=== PATIENT | male | born 1970 | race Caucasian/White ===

== ENCOUNTER → 2017-07-26 | Outpatient (CLI) | payer OTHER | LOC: BMCIMAGING 09:25 | PROVIDERS: ATTEND Internal Medicine | DX: M19.012 Primary osteoarthritis, left shoulder (principal) ==

== ENCOUNTER → 2017-10-02 | Outpatient (CLI) | payer OTHER | LOC: BMCIMAGING 09:28 | PROVIDERS: ATTEND Internal Medicine | DX: J40 Bronchitis, not specified as acute or chronic (principal) ==

== ENCOUNTER 2018-01-25 16:07 | Emergency (ER) | payer OTHER ==
[2018-01-25] MEDS ORDERED: ASPIRIN 81 MG CHEWABLE TAB PO ONE (16:38)
[2018-01-25] MEDS ORDERED: NS 500 ML IV ONE (16:38)
--- NOTE | 2018-01-25 16:41 | EDPHY ---
H & P Stated Complaint: R face/hand tingling Time Seen by Provider: 01/25/18 16:28 HPI/ROS: CHIEF COMPLAINT: Jaw numbness HISTORY OF PRESENT ILLNESS: Patient is a 47-year-old man who quit smoking 3 months ago and also has ulcerative colitis and GERD who comes to the emergency department complaining of tingling in his jaw and both forearms that began 3 hr ago. It began while he is watching a movie. He states that he can reproduce the tingling is arm if he puts his arms up on the arm railings. He was in this position while watching the movie. He states that he has also had palpitations after meals for the last month. He denies chest pain per se. He denies shortness of breath, diaphoresis, nausea or lightheadedness. No known cardiac disease. He also comments that his blood pressures been higher in the right arm than the left when he checks it at home. He called his primary Dr. Tolentino who recommended he come to the ER. REVIEW OF SYSTEMS: Constitutional: denies: chills, fever, recent illness, recent injury EENTM: denies: blurred vision, double vision, nose congestion Respiratory: denies: cough, shortness of breath Cardiac: denies: chest pain, irregular heart rate, lightheadedness, palpitations Gastrointestinal/Abdominal: denies: abdominal pain, diarrhea, nausea, vomiting, blood streaked stools Genitourinary: denies: dysuria, frequency, hematuria, pain Musculoskeletal: denies: joint pain, muscle pain Skin: denies: lesions, rash, jaundice, bruising Neurological: denies: headache, numbness, paresthesia, tingling, dizziness, weakness Hematologic/Lymphatic: denies: blood clots, easy bleeding, easy bruising Immunologic/allergic: denies: HIV/AIDS, transplant EXAM: GENERAL: Well-appearing, well-nourished and in no acute distress. HEAD: Atraumatic, normocephalic. EYES: Pupils equal round and reactive to light, extraocular movements intact, sclera anicteric, conjunctiva are normal. ENT: TMs normal, nares patent, oropharynx clear without exudates. Moist mucous membranes. NECK: Normal range of motion, supple without lymphadenopathy or JVD. LUNGS: Breath sounds clear to auscultation bilaterally and equal. No wheezes rales or rhonchi. HEART: Regular rate and rhythm without murmurs, rubs or gallops. Pulses equal ABDOMEN: Soft, nontender, normoactive bowel sounds. No guarding, no rebound. No masses appreciated. BACK: No CVA tenderness, no spinal tenderness, step-offs or deformities EXTREMITIES: Normal range of motion, no pitting or edema. No clubbing or cyanosis. NEUROLOGICAL: Cranial nerves II through XII grossly intact. Normal speech, normal gait. 5/5 strength, normal movement in all extremities, normal sensation PSYCH: Normal mood, normal affect. SKIN: Warm, dry, normal turgor, no visible rashes or lesions. Source: Patient, Family Exam Limitations: No limitations - Personal History Current Tetanus/Diphtheria Vaccine: Yes Current Tetanus Diphtheria and Acellular Pertussis (TDAP): Yes - Medical/Surgical History Hx Asthma: No Hx Chronic Respiratory Disease: No Hx Diabetes: No Hx Cardiac Disease: No Hx Renal Disease: No Hx Cirrhosis: No Hx Alcoholism: No Hx HIV/AIDS: No Hx Splenectomy or Spleen Trauma: No Other PMH: UC, appy, GERD, - Family History Significant Family History: No pertinent family hx - Social History Smoking Status: Former smoker Alcohol Use: Sober Drug Use: None Constitutional: Initial Vital Signs Temperature (C) 36.7 C 01/25/18 16:13 Heart Rate 66 01/25/18 16:13 Respiratory Rate 16 01/25/18 16:13 Blood Pressure 144/83 H 01/25/18 16:13 O2 Sat (%) 95 01/25/18 16:13 O2 Delivery Mode Room Air Allergies/Adverse Reactions: lactose [Lactose] Allergy (Severe, Verified 01/25/18 16:12) BLOATING, GAS gluten [Gluten] Allergy (Intermediate, Verified 01/25/18 16:12) AGGRAVATES ULCERATIVE COLITITS Penicillins Allergy (Unknown, Verified 01/25/18 16:12) HIVES? Home Medications: Medication Instructions Recorded Lactobacillus Acidophilus 1 each PO 09/17/11 [Acidophilus] Mesalamine [Lialda] 2.4 gm PO DAILY 04/26/13 Nasal [place] 01/25/18 Medical Decision Making - Diagnostics EKG Interpretation: An EKG obtained and was read and documented in trace view. Please see trace view for full reading and report. Sinus rhythm, no acute ischemic changes Imaging Results: Imaging Impressions Chest/Thorax CTA 01/25/18 16:41 Impression: 1. No evidence of pulmonary thromboembolic disease. 2. Normal thoracic aorta. No dissection. 3. Clear lungs. No acute pulmonary process. 4. Cholelithiasis. Findings discussed with Emergency Department physician, Miguel Hess M.D., on January 25, 2018 at 1758. Imaging: Discussed imaging studies w/ freight caller Radiologist ED Course/Re-evaluation: 6:20 p.m. we discussed the lab and imaging results. Patient is relieved. He is currently asymptomatic. We agreed to observe into a 3 are troponin. I did offer admission he declines. We discussed the risks involved. 7:30 p.m. We discussed the repeat troponin which is reassuring. We discussed differential and indications for returning as well as the importance of follow- up and stress testing. He will talk with Rajan to schedule this. Differential Diagnosis: Partial list of the Differential diagnosis considered include but were not limited to; paresthesia, neuropathy, coronary disease, dissection, PE and although unlikely based on the history and physical exam, I also considered stroke, seizure, shingles, 's palsy, TIA. I discussed these differential diagnoses and the plan with the patient as well as the usual and expected course. The patient understands that the diagnosis is provisional and that in medicine we are not always correct and that further workup is often warranted. Usual and customary warnings were given. All of the patient's questions were answered. The patient was instructed to return to the emergency department should the symptoms at all worsen or return, otherwise to followup with the physician as we discussed. - Data Points Laboratory Results: Laboratory Results 01/25/18 16:50 01/25/18 16:50 01/25/18 01/25/18 01/25/18 19:50 16:50 16:50 WBC RBC Hgb Hct MCV MCH MCHC RDW Plt Count MPV Neut % (Auto) Lymph % (Auto) [place] % (Auto) Eos % (Auto) Baso % (Auto) Nucleat RBC Rel Count Absolute Neuts (auto) Absolute Lymphs (auto) Absolute Monos (auto) Absolute Eos (auto) Absolute Basos (auto) Absolute Nucleated RBC Immature Gran % Immature Gran # PT 12.9 SEC SEC (12.0-15.0) INR 0.95 (0.83-1.16) APTT 30.4 SEC SEC (23.0-38.0) D-Dimer < 0.27 ug/mLFEU ug/mLFEU (0.00-0.50) Sodium 140 mEq/L mEq/L (135-145) Potassium 3.9 mEq/L mEq/L (3.5-5.2) Chloride 102 mEq/L mEq/L (97-110) Carbon Dioxide 26 mEq/l mEq/l (22-31) Anion Gap 12 mEq/L mEq/L (8-16) BUN 10 mg/dL mg/dL (7-23) Creatinine 0.9 mg/dL mg/dL (0.7-1.3) Estimated GFR > 60 Glucose 86 mg/dL mg/dL (70-100) Calcium 9.4 mg/dL mg/dL (8.5-10.4) Troponin I < 0.012 ng/mL ng/mL < 0.012 ng/mL ng/mL (0.000-0.034) (0.000-0.034) 01/25/18 16:50 WBC 6.94 10^3/uL 10^3/uL (3.80-9.50) RBC 4.96 10^6/uL 10^6/uL (4.40-6.38) Hgb 14.8 g/dL g/dL (13.7-17.5) Hct 41.6 % % (40.0-51.0) MCV 83.9 fL fL (81.5-99.8) MCH 29.8 pg pg (27.9-34.1) MCHC 35.6 g/dL g/dL (32.4-36.7) RDW 13.2 % % (11.5-15.2) Plt Count 225 10^3/uL 10^3/uL (150-400) MPV 10.9 fL fL (8.7-11.7) Neut % (Auto) 63.0 % % (39.3-74.2) Lymph % (Auto) 25.4 % % (15.0-45.0) [place] % (Auto) 8.9 % % (4.5-13.0) Eos % (Auto) 2.0 % % (0.6-7.6) Baso % (Auto) 0.4 % % (0.3-1.7) Nucleat RBC Rel Count 0.0 % % (0.0-0.2) Absolute Neuts (auto) 4.37 10^3/uL 10^3/uL (1.70-6.50) Absolute Lymphs (auto) 1.76 10^3/uL 10^3/uL (1.00-3.00) Absolute Monos (auto) 0.62 10^3/uL 10^3/uL (0.30-0.80) Absolute Eos (auto) 0.14 10^3/uL 10^3/uL (0.03-0.40) Absolute Basos (auto) 0.03 10^3/uL 10^3/uL (0.02-0.10) Absolute Nucleated RBC 0.00 10^3/uL 10^3/uL (0-0.01) Immature Gran % 0.3 % % (0.0-1.1) Immature Gran # 0.02 10^3/uL 10^3/uL (0.00-0.10) PT INR APTT D-Dimer Sodium Potassium Chloride Carbon Dioxide Anion Gap BUN Creatinine Estimated GFR Glucose Calcium Troponin I Medications Given: Discontinued Medications Aspirin (Aspirin) 324 mg PO EDNOW ONE Stop: 01/25/18 16:39 Last Admin: 01/25/18 17:03 Dose: 324 mg Sodium Chloride (Ns) 500 mls @ 0 mls/hr IV EDNOW ONE; Wide Open PRN Reason: Protocol Stop: 01/25/18 16:39 Last Admin: 01/25/18 17:04 Dose: 500 mls Departure - Departure Disposition: Home, Routine, Self-Care Clinical Impression: Paresthesia Condition: Fair Instructions: Paresthesia (ED) Referrals: Jamel Tolentino MD [Primary Care Provider] - As per Instructions
--- NOTE | 2018-01-25 16:51 | CPEKG ---
Heart Rate: 59 RR Interval: 1017 P-R Interval: 172 QRSD Interval: 94 QT Interval: 392 QTC Interval: 389 P [place]: 57 QRS [place]: 27 T Wave [place]: 26 EKG Severity - NORMAL ECG - EKG Impression: SINUS RHYTHM Electronically Signed By: Miguel Hess 25-Jan-2018 17:41:10
[2018-01-25 17:07] LABS: PLATELET COUNT 225 10^3/uL (150-400)
[2018-01-25 17:11] LABS: INR 0.95 (0.83-1.16); PROTIME(PATIENT) 12.9 SEC (12.0-15.0)
[2018-01-25] MEDS ORDERED: IOPAMIDOL (ISOVUE 370) 100 ML BTL IV ONE (17:23)
[2018-01-25 20:50] VITALS: BP 118/72
== END 2018-01-25 20:48 | disposition home or self-care (01) ==
DX: R20.2 Paresthesia of skin (principal); E86.9 Volume depletion, unspecified; Z87.891 Personal history of nicotine dependence
CPT/HCPCS: Q9967

== ENCOUNTER → 2019-01-29 | Outpatient (CLI) | payer OTHER | LOC: FIMAGING 11:20 | PROVIDERS: ATTEND Internal Medicine | DX: N50.3 Cyst of epididymis (principal) ==